=== PATIENT | male | born 1970 | race Caucasian/White ===

== ENCOUNTER 2018-12-30 08:04 | Outpatient (CLI) | payer OTHER ==
--- NOTE | 2018-12-30 20:20 | CT ---
CT ABDOMEN AND PELVIS WITH AND WITHOUT CONTRAST AND MULTIPLE RECONSTRUCTIONS OF REGIONS 12/30/[address] of the abdomen and pelvis was done pre and post IV contrast with postcontrast images done i n venous and delayed phases. Reconstructions were later done on the various images above. This was do ne as part of a renal mass protocol. The lung bases are clear. There is a calcified granuloma in the right lower lobe. There are no effusi ons. The liver has several cysts within it which are all water density. The largest is near the junct ion of the right and left lobes and measures 3.1 cm in size. The spleen, pancreas, adrenal glands, ga llbladder, and abdominal aorta were all unremarkable. Cysts are seen in each kidney. A large cyst is seen in the right kidney that measures 4.[address] It maintains water density throughout the various phases of contrast. Average CT units varied fr om 8 on the noncontrast images to 11 on the venous images to 8 on the delayed images. A parapelvic cy st appears to be present in the left kidney. It also has low CT numbers below 10 and does not substan tially enhance over time. There is no hydronephrosis. The findings above are consistent with simple r enal cysts. Currently there were no enhancing areas seen in any of them to raise concern. CT of the pelvis showed no pelvic masses, fluid collections, or adenopathy. There is no inflammatory change seen. The bowel was unremarkable throughout with no bowel wall thickening or inflammatory mercado ges seen. No free air or free fluid is present. IMPRESSION: Renal and hepatic cysts. No evidence of solid mass in either kidney. POS: HOME
== END 2018-12-30 08:05 | disposition home or self-care (01) ==
LOC: BURCT 08:04
PROVIDERS: ATTEND Family Medicine
DX: N28.1 Cyst of kidney, acquired (principal); K76.89 Other specified diseases of liver
CPT/HCPCS: 74178